=== PATIENT | female | born 1955 ===

== ENCOUNTER 2025-01-06 12:15 | Inpatient (IN) | payer OTHER ==
[~2025-01-06] VITALS: Ht 299.7 cm; Wt 68.5 kg
[2025-01-06] MEDS ORDERED: B12 ACTIVE1000 MCG PO (13:58)
[2025-01-06] MEDS ORDERED: ALTACE5 MG PO (13:58)
[2025-01-06] MEDS ORDERED: MULTIPLE VITAM1 EAC2 PO (13:59)
[2025-01-13] MEDS ORDERED: METRONIDAZOLE/SODIUM CHLORIDE 500 MG/100 ML PIGGYBACK IV ONE (06:57)
[2025-01-13] MEDS ORDERED: BUPIVACAINE HCL/Mpf 0.5% 10ML VIAL ONE (06:57)
[2025-01-13] MEDS ORDERED: CEFTRIAXONE SODIUM 2,000 MG VIAL ONE (06:57)
[2025-01-13] MEDS ORDERED: LIDOCAINE HCL 1% 10ML VIAL ONE (06:57)
[2025-01-13] MEDS ORDERED: LIDOCAINE HCL 1%/EPINEPHRINE 20ML VIAL IJ ONE (06:58)
[2025-01-13] MEDS ORDERED: SUGAMMADEX SODIUM 200 MG/2 ML VIAL IV ONE (10:10)
[2025-01-13] MEDS ORDERED: ONDANSETRON HCL 2 MG/ML VIAL IV PRN (10:15)
[2025-01-13] MEDS ORDERED: OxyCODONE HCL 5 MG TABLET (ROXICODONE) PO PRN (10:15)
[2025-01-13] MEDS ORDERED: MORPHINE SULFATE 4 MG/ML VIAL IV PRN (10:15)
[2025-01-13] MEDS ORDERED: RINGERS SOLUTION,LACTATED 1,000 ML IV SCH (10:15)
[2025-01-13] MEDS ORDERED: DEXTROSE 50 % IN WATER 0.5 G/ML DISP.SYRIN IV PRN (10:15)
[2025-01-13] MEDS ORDERED: FAMOTIDINE/PF 20 MG/2 ML VIAL IV PUSH SCH (10:16)
[2025-01-13] MEDS ORDERED: ACETAMINOPHEN 500 MG GEL..CAP PO SCH (10:17)
[2025-01-13] MEDS ORDERED: GABAPENTIN 300 MG CAPSULE PO SCH (10:17)
[2025-01-13] MEDS ORDERED: LACTULOSE 20 G/30 ML BLIST.PACK PO SCH (10:17)
[2025-01-13] MEDS ORDERED: CELECOXIB 200 MG CAPSULE PO SCH (10:17)
[2025-01-13] MEDS ORDERED: HYOSCYAMINE SULFATE 0.125 MG TAB.SUBL SL SCH (10:17)
[2025-01-13 12:57] LABS: BASO % 0.3 % (0.1-1.2); EOS # 0.01 (0.04-0.54); EOS % 0.1 % (0.7-7.0); LYMPH # 1.51 (1.18-3.74); LYMPH % 9.6 % (19.3-53.1); MEAN PLATELET VOLUME 11.40 fl (9.4-12.4); MONO # 0.91 (0.24-0.82); MONO % 5.8 % (4.7-12.5); NEUT # 13.20 (1.56-6.13); NEUT % 83.9 % (34.0-71.1); RED CELL DISTRIBUTION WIDTH 13.2 % (11.6-14.4)
[2025-01-13 13:40] LABS: BUN CREA RATIO 16.0 (7.0-25.0); CREATININE SERUM 0.7 mg/dL (0.55-1.02); GFR 82.97; GLUCOSE FASTING 129.0 mg/dL (65-100); OSMOLALITY SERUM 284.0 MOSM/KG (275-295)
[2025-01-13] MEDS ORDERED: ENALAPRILAT DIHYDRATE 1.25 MG/ML VIAL IV PRN (14:45)
[2025-01-13] MEDS ORDERED: HYOSCYAMINE SULFATE 0.125 MG TAB.SUBL ONE (16:05)
[2025-01-13] MEDS ORDERED: CELECOXIB 200 MG CAPSULE PO ONE (16:05)
[2025-01-13] MEDS ORDERED: ENALAPRILAT DIHYDRATE 1.25 MG/ML VIAL IV ONE (16:06)
[2025-01-14 02:59] VITALS: BP 112/63; O2SAT 97
[2025-01-14 06:23] LABS: BASO % 0.3 % (0.1-1.2); EOS # 0.10 (0.04-0.54); EOS % 1.1 % (0.7-7.0); LYMPH # 2.72 (1.18-3.74); LYMPH % 29.7 % (19.3-53.1); MEAN PLATELET VOLUME 13.10 fl (9.4-12.4); MONO # 0.96 (0.24-0.82); MONO % 10.5 % (4.7-12.5); NEUT # 5.32 (1.56-6.13); NEUT % 58.1 % (34.0-71.1); RED CELL DISTRIBUTION WIDTH 12.7 % (11.6-14.4)
[2025-01-14 06:55] LABS: BUN CREA RATIO 11.0 (7.0-25.0); CREATININE SERUM 0.7 mg/dL (0.55-1.02); GFR 82.97; GLUCOSE FASTING 97.0 mg/dL (65-100); OSMOLALITY SERUM 281.0 MOSM/KG (275-295)
[2025-01-14] MEDS ORDERED: RAMIPRIL 5 MG CAPSULE PO SCH (09:00)
[2025-01-14 09:20] VITALS: BP 124/60; O2SAT 96
[2025-01-14] MEDS ORDERED: ENOXAPARIN SODIUM 40 MG/0.4 ML SYRINGE SUBCUTANEO SCH (17:00)
[2025-01-14 17:53] VITALS: BP 143/60; O2SAT 98
[2025-01-15 00:12] VITALS: BP 113/52; O2SAT 98
[2025-01-15 05:38] LABS: BASO % 0.4 % (0.1-1.2); EOS # 0.25 (0.04-0.54); EOS % 2.5 % (0.7-7.0); LYMPH # 2.44 (1.18-3.74); LYMPH % 24.2 % (19.3-53.1); MEAN PLATELET VOLUME 12.80 fl (9.4-12.4); MONO # 1.04 (0.24-0.82); MONO % 10.3 % (4.7-12.5); NEUT # 6.29 (1.56-6.13); NEUT % 62.4 % (34.0-71.1); RED CELL DISTRIBUTION WIDTH 13.4 % (11.6-14.4)
[2025-01-15 06:37] LABS: BUN CREA RATIO 14.0 (7.0-25.0); CREATININE SERUM 0.64 mg/dL (0.55-1.02); GFR 92.01; GLUCOSE FASTING 101.0 mg/dL (65-100); OSMOLALITY SERUM 286.0 MOSM/KG (275-295)
[2025-01-15] MEDS ORDERED: ENOXAPARIN SODIUM 40 MG/0.4 ML SYRINGE SUBCUTANEO SCH (09:00)
[2025-01-15 09:32] VITALS: BP 120/62; O2SAT 97
[2025-01-15] MEDS ORDERED: GABAPENTIN300 MG PO (10:26)
[2025-01-15] MEDS ORDERED: PAIN RELIEVER500 M2 PO (10:26)
[2025-01-15] MEDS ORDERED: HYOSCYAMINE0.125 M1 SL (10:26)
[2025-01-15 19:46] VITALS: BP 160/68; O2SAT 98
== END 2025-01-15 20:40 | disposition home or self-care (01) | DRG 330 ==
LOC: O/R 01-13 06:00 → MEDI 01-13 06:00 → SURH 01-13 12:15 → MEDI 01-13 15:05 → SURH 01-13 20:30 → MEDI 01-15 20:40
PROVIDERS: Internal Medicine Geriatric Medicine; ADMIT Colon & Rectal Surgery; ATTEND Colon & Rectal Surgery
PROC: 07BB4ZZ Excision of Mesenteric Lymphatic, Percutaneous Endoscopic Approach (ICD-10-PCS; 2025-01-13)
PROC: 0DBP4ZZ Excision of Rectum, Percutaneous Endoscopic Approach (ICD-10-PCS; 2025-01-13)
PROC: 07BC4ZZ Excision of Pelvis Lymphatic, Percutaneous Endoscopic Approach (ICD-10-PCS; 2025-01-13)
PROC: 0DJD8ZZ Inspection of Lower Intestinal Tract, Via Natural or Artificial Opening Endoscopic (ICD-10-PCS; 2025-01-13)
PROC: 0DTN4ZZ Resection of Sigmoid Colon, Percutaneous Endoscopic Approach (ICD-10-PCS; principal; 2025-01-13 20:30)
DX: C19 Malignant neoplasm of rectosigmoid junction (principal); K92.1 Melena; K66.0 Peritoneal adhesions (postprocedural) (postinfection); R59.0 Localized enlarged lymph nodes; K57.30 Diverticulosis of large intestine without perforation or abscess without bleeding; Z85.048 Personal history of other malignant neoplasm of rectum, rectosigmoid junction, and anus; I10 Essential (primary) hypertension; Z87.891 Personal history of nicotine dependence